=== PATIENT | male | born 1960 | race Caucasian/White ===

== ENCOUNTER 2018-06-20 11:15 | Outpatient (CLI) | payer OTHER ==
[~2018-06-20] VITALS: Ht 182.9 cm; Wt 116.1 kg
[2018-06-20 11:38] LABS: HEMATOCRIT 43.5 % (42.0-52.0); HEMOGLOBIN 15.3 gm/dL (14.0-18.0); MCH 32.5 pg (26.0-34.0); MCHC 35.1 g/dL (28.0-37.0); MCV 92.5 fL (80.0-100.0); RBC 4.7 mil/uL (4.50-6.00); RDW 14.8 % (10.5-14.5); WBC 10.8 thou/uL (4.0-11.0)
[2018-06-20 11:52] LABS: CALCIUM 9.1 mg/dL (8.5-10.1); CREATININE 0.8 mg/dL (0.7-1.3); POTASSIUM 4.3 mmol/L (3.5-5.1)
[2018-06-20 12:11] VITALS: BP 130/66
[2018-06-20] MEDS ORDERED: ATORVASTATIN CA40 MG PO (12:41)
[2018-06-20] MEDS ORDERED: ATENOLOL 50MG T50 M1 PO (12:41)
[2018-06-20] MEDS ORDERED: ASPIR 8181 M1 PO (12:41)
[2018-06-20] MEDS ORDERED: UNICOMPLEX M TA1 TA1 PO (12:42)
[2018-06-20] MEDS ORDERED: BACTRIM DS TAB1 EACH PO (12:42)
[2018-06-20] MEDS ORDERED: OMEGA-31000 M1 PO (12:43)
[2018-06-20] MEDS ORDERED: CHLORTHALIDONE25 MG PO (12:43)
[2018-06-20] MEDS ORDERED: COZAAR 25 MG TA25 M2 PO (12:43)
[2018-06-20] MEDS ORDERED: PROBIOTIC1 EAC1 PO (12:44)
[2018-06-20] MEDS ORDERED: HYDROCODON-ACE1 EAC7 PO (12:44)
[2018-06-20 17:29] VITALS: BP 135/61
--- NOTE | 2018-06-20 17:38 | NUR ---
ASSUMED CARE AT 1725. PT A&OX4. L GROIN SITE, SOFT, NO HEMATOMA. DRESSING C,D,I. PT ON BEDREST UNTIL 1800. IF VSS REMAIN STABLE AN SITE REMAINS STABLE, ORDERS ARE FOR PT TO BE DISCHARGED HOME AFTER 1900. WILL CONTINUE TO MONITOR PT.
[2018-06-20 18:00] VITALS: BP 125/62
[2018-06-20 18:30] VITALS: BP 121/63
[2018-06-20 19:00] VITALS: BP 115/53
[2018-06-20 19:30] VITALS: BP 132/66
== END 2018-06-20 19:58 | disposition home or self-care (01) ==
LOC: SPEC 11:15 → 2N 17:48 → SPEC 19:58
PROVIDERS: Nuclear Medicine Nuclear Cardiology
DX: I73.89 Other specified peripheral vascular diseases (principal); I70.1 Atherosclerosis of renal artery; I10 Essential (primary) hypertension; E78.5 Hyperlipidemia, unspecified; F17.210 Nicotine dependence, cigarettes, uncomplicated; Z82.49 Family history of ischemic heart disease and other diseases of the circulatory system; Z79.899 Other long term (current) drug therapy; Z79.82 Long term (current) use of aspirin; Z98.890 Other specified postprocedural states
CPT/HCPCS: 10081

== ENCOUNTER → 2019-01-24 | Outpatient (CLI) | payer OTHER ==
[~2019-01-24] VITALS: Ht 182.9 cm; Wt 112.5 kg
[~2019-01-24] MED LIST: ASPIR 8181 M1 PO; ATENOLOL 50MG T50 M1 PO; ATORVASTATIN CA40 MG PO; BACTRIM DS TAB1 EACH PO; CHLORTHALIDONE25 MG PO; COZAAR 25 MG TA25 M2 PO; HYDROCODON-ACE1 EAC7 PO; NORVASC 2.5 MG2.5 M1 PO; OMEGA-31000 M1 PO; PROBIOTIC1 EAC1 PO; UNICOMPLEX M TA1 TA1 PO
[2019-01-24 07:15] VITALS: BP 134/84
== END | disposition home or self-care (01) ==
LOC: CATH 06:41
DX: I87.1 Compression of vein (principal); I87.2 Venous insufficiency (chronic) (peripheral); I10 Essential (primary) hypertension; E78.5 Hyperlipidemia, unspecified; I73.9 Peripheral vascular disease, unspecified; Z98.890 Other specified postprocedural states; F17.210 Nicotine dependence, cigarettes, uncomplicated; Z79.899 Other long term (current) drug therapy; Z79.82 Long term (current) use of aspirin

== ENCOUNTER → 2019-02-12 | Outpatient (CLI) | payer OTHER ==
[~2019-02-12] VITALS: Ht 182.9 cm; Wt 112.0 kg
[2019-02-12 07:36] VITALS: BP 115/56
== END | disposition home or self-care (01) ==
LOC: CATH 01-30 11:41
DX: I87.323 Chronic venous hypertension (idiopathic) with inflammation of bilateral lower extremity (principal); M79.605 Pain in left leg; R60.0 Localized edema; I10 Essential (primary) hypertension; E78.5 Hyperlipidemia, unspecified; Z98.890 Other specified postprocedural states; Z79.899 Other long term (current) drug therapy; Z79.82 Long term (current) use of aspirin